=== PATIENT | male | born 2000 | race Caucasian/White ===

== ENCOUNTER → 2020-09-11 11:12 | Outpatient (BNVA) | payer OTHER, SELFPAY | PROVIDERS: PCP Internal Medicine; Visit Provider Surgery | DX: E66.01 Morbid (severe) obesity due to excess calories (principal); Z68.41 Body mass index [BMI] 40.0-44.9, adult | CPT/HCPCS: 99212 ==

== ENCOUNTER → 2020-10-20 08:18 | Outpatient (BNVA) | payer OTHER, SELFPAY | PROVIDERS: Visit Provider Physician Assistant | DX: Z76.89 Persons encountering health services in other specified circumstances (principal) ==

== ENCOUNTER → 2020-11-20 08:27 | Outpatient (BNVA) | payer OTHER, SELFPAY | PROVIDERS: Visit Provider Surgery | DX: E66.01 Morbid (severe) obesity due to excess calories (principal); Z68.41 Body mass index [BMI] 40.0-44.9, adult | CPT/HCPCS: 99212 ==

== ENCOUNTER 2020-12-05 13:13 | Outpatient (REF) | payer OTHER, SELFPAY ==
[2020-12-05 15:37] LABS: Vitamin D 25-OH Total 12.8 ng/mL (>30)
[2020-12-09 22:03] LABS: Vitamin A 33 mcg/dL (38-98)
== END 2020-12-05 13:14 | disposition home or self-care (01) ==
LOC: HO.LAB 13:13
PROVIDERS: Visit Provider Surgery
DX: E66.01 Morbid (severe) obesity due to excess calories (principal); Z68.41 Body mass index [BMI] 40.0-44.9, adult; E50.9 Vitamin A deficiency, unspecified; E55.9 Vitamin D deficiency, unspecified
CPT/HCPCS: 36415; 82306; 84590; 99212

== ENCOUNTER → 2020-12-22 13:58 | Outpatient (BNVA) | payer OTHER, SELFPAY | PROVIDERS: Visit Provider Physician Assistant | DX: E66.9 Obesity, unspecified (principal); Z68.38 Body mass index [BMI] 38.0-38.9, adult | CPT/HCPCS: 99212 ==

== ENCOUNTER → 2020-12-25 13:21 | Outpatient (REF) | payer OTHER, SELFPAY ==
--- NOTE | 2020-12-25 13:29 | ECG_ITS ---
Test Reason : SOB Blood Pressure : / mmHG Vent. Rate : 068 BPM Atrial Rate : 068 BPM P-R Int : 122 ms QRS Dur : 110 ms QT Int : 384 ms P-R-T Axes : 050 052 007 degrees QTc Int : 408 ms Normal sinus rhythm Normal ECG When compared with ECG of 02-JUN-2020 10:43, No significant change was found Referred By: Abena Fields Electronically Signed By:Flody Thompson
== END ==
LOC: HO.CARD 13:21
PROVIDERS: Visit Provider Surgery
DX: R06.02 Shortness of breath (principal)
CPT/HCPCS: 93005

== ENCOUNTER 2020-12-27 06:00 | Inpatient (IN) | payer OTHER, SELFPAY ==
[2020-12-22 09:19] VITALS: BMI 38.8
[2020-12-22 10:59] VITALS: BMI 38.8
[2020-12-22 16:52] LABS: Glucose Urine UA NEG (NEG); Leukocyte Esterase Urine NEG (NEG); Nitrite Urine NEG (NEG); PH 5.5 (5.0-8.0); Specific Gravity - Urine >= 1.030 (1.005-1.025); Urine Blood NEG (NEG); Urine Ketones NEG (NEG); Urine Protein NEG (NEG-TRACE)
[2020-12-22 16:54] LABS: Appearance Urine CLEAR; Color Urine YELLOW
[2020-12-22 17:24] LABS: MANUAL DIFF FLAG NO
[2020-12-22 17:30] LABS: Basophils Percent Auto 0.7 % (0-2); Eosinophils Absolute Auto 0.2 X10*3/uL (0.0-0.4); Eosinophils Percent Auto 2.6 % (0-4); Hematocrit 46.5 % (42-52); Hemoglobin 15.4 g/dl (14.0-18.0); Imm Gran Abs Auto 0.01 X10*3/uL (0.00-0.03); Imm Gran Pct Auto 0.2 % (0.0-0.4); Lymphocytes Absolute Auto 2.2 X10*3/uL (1.2-4.9); Lymphocytes Percent Auto 36.8 % (20-40); Mean Corpuscular HGB Conc 33.1 g/dl (31.0-36.0); Mean Corpuscular Hemoglobin 28.7 pg (27.0-33.0); Mean Corpuscular Volume 86.6 fL (80-98); Mean Platelet Volume 11.1 fL (9.4-12.4); Monocytes Absolute Auto 0.5 X10*3/uL (0.1-1.2); Monocytes Percent Auto 8.7 % (2-11); Neutrophils Absolute Auto 3.1 X10*3/uL (2.0-8.3); Platelet Count 290 X10*3/uL (160-400); Red Blood Count 5.37 X10*6/uL (4.60-5.80); Red Cell Distribution Width 13.5 % (11.0-16.0); White Blood Count 6.1 X10*3/uL (4.8-10.8)
[2020-12-22 17:38] LABS: INTERNATIONAL NORM RATIO 1.1 (0.9-1.1); Prothrombin Time 12.7 SEC (10.8-13.0)
[2020-12-22 17:40] LABS: Partial Thromboplastin Time 36.8 SEC (24.1-38.0)
[2020-12-22 19:32] LABS: Albumin Level 4.7 g/dL (3.5-5.0); Anion Gap 12 (12-20); Blood Urea Nitrogen 12 mg/dL (9-16); Calcium 9.3 mg/dL (8.4-10.2); Carbon Dioxide 28 mmol/L (22-29); Chloride 108 mmol/L (96-108); Creatinine Clr Calc Pharmacy 163.7; Estimated Glomerular Filt Rate > 60; Glucose Random 75 mg/dL (60-115); Potassium 4.4 mmol/L (3.3-5.1); Sodium 144 mmol/L (135-145)
[2020-12-22 19:54] LABS: Vitamin D 25-OH Total 10.7 ng/mL (>30)
--- NOTE | 2020-12-26 10:45 | P.CONAN_ITS ---
Documented by User: Roslyn Holland 12/26/20 10:46 HPI - Anesthesia Eval Consult details Narrative: 20yo M for Gastrectomy Sleeve PMFSH Active Problems Active Problems: All Active Problems (Updated 12/22/20 @ 16:13 by Yanely Nicole) Obesity (Acute) Shortness of breath (Acute) Preoperative examination (Acute) Body mass index (BMI) of 40.0 to 44.9 in adult (Acute) BMI 38.0-38.9,adult (Acute) Morbid (severe) obesity due to excess calories (Acute) Vitamin D deficiency (Acute) Vitamin A deficiency (Acute) Morbid obesity with BMI of 40.0-44.9, adult (Acute) Past Medical History Medical History Anxiety Depression Morbid obesity with BMI of 40.0-44.9, adult PTSD (post-traumatic stress disorder) Family History Family History Father No problems noted. Mother Fibromyalgia PTSD (post-traumatic stress disorder) Hypoglycemia Depression Brother No problems noted. Brother No problems noted. Sister No problems noted. Sister No problems noted. Surgical History Surgical History S/P routine circumcision Social History Social History Are you a primary skin care consultant to a significant other at home: No Do you presently have visiting nurse or other home services: No Alcohol intake: never Smoking Status: Never smoker Use of substances other than those prescribed or required for medical reasons: No Have you been hit, kicked, punched, or otherwise hurt by someone within the past year? If so, by whom?: No Advance Directives: No Advance Directives Information Provided: No Recently lost weight without trying: No Meds Allergies Allergy/AdvReac Type Severity Reaction Status Date / Time No Known Allergies Allergy Verified 12/22/20 16:11 Exam Exam Date and Time: December 26, 2020 1045 Height,Weight and Vital Signs: Height 5 ft 9 in Weight 119.295 kg Pertinent Lab Results Pertinent Lab Results: Laboratory Tests 12/22/20 12/22/20 12/22/20 16:35 16:35 16:35 WBC 6.1 RBC 5.37 Hgb 15.4 Hct 46.5 MCV 86.6 MCH 28.7 MCHC 33.1 RDW 13.5 Plt Count 290 MPV 11.1 Immature Gran % (Auto) 0.2 Neut % (Auto) 51.0 Lymph % (Auto) 36.8 [place] % (Auto) 8.7 Eos % (Auto) 2.6 Baso % (Auto) 0.7 Lymph # (Auto) 2.2 [place] # (Auto) 0.5 Eos # (Auto) 0.2 Baso # (Auto) 0.0 Abs Immat Gran (auto) 0.01 Absolute Neuts (auto) 3.1 Absolute Nucleated RBC 0.000 Nucleated RBC % (auto) 0.0 PT 12.7 INR 1.1 APTT 36.8 Sodium 144 Potassium 4.4 Chloride 108 Carbon Dioxide 28 Anion Gap 12 BUN 12 Creatinine 0.91 Estim Creat Clear Calc 163.7 Estimated GFR > 60 Random Glucose 75 Calcium 9.3 Albumin 4.7 25-OH Vitamin D Total 10.7 Urine Color Urine Appearance Urine pH Ur Specific [place] Urine Protein Urine Glucose (UA) Urine Ketones Urine Blood Urine Nitrite Ur Leukocyte Esterase Blood Type Antibody Screen 12/22/20 12/22/20 16:35 Unknown WBC RBC Hgb Hct MCV MCH MCHC RDW Plt Count MPV Immature Gran % (Auto) Neut % (Auto) Lymph % (Auto) [place] % (Auto) Eos % (Auto) Baso % (Auto) Lymph # (Auto) [place] # (Auto) Eos # (Auto) Baso # (Auto) Abs Immat Gran (auto) Absolute Neuts (auto) Absolute Nucleated RBC Nucleated RBC % (auto) PT INR APTT Sodium Potassium Chloride Carbon Dioxide Anion Gap BUN Creatinine Estim Creat Clear Calc Estimated GFR Random Glucose Calcium Albumin 25-OH Vitamin D Total Urine Color YELLOW Urine Appearance CLEAR Urine pH 5.5 Ur Specific [place] >= 1.030 H Urine Protein NEG Urine Glucose (UA) NEG Urine Ketones NEG Urine Blood NEG Urine Nitrite NEG Ur Leukocyte Esterase NEG Blood Type A Positive Antibody Screen NEGATIVE Narrative Narrative: EKG 12/25/20 Normal sinus rhythm Normal ECG When compared with ECG of 02-JUN-2020 10:43, No significant change was found Assessment and Plan Assessment Anesthesia Assessment: Chart Reviewed Documented by User: Jagdish Guerra 12/27/20 10:54 PMFSH Past Medical History Medical History Anxiety Depression Morbid obesity with BMI of 40.0-44.9, adult PTSD (post-traumatic stress disorder) Family History Family History Father No problems noted. Mother Fibromyalgia PTSD (post-traumatic stress disorder) Hypoglycemia Depression Brother No problems noted. Brother No problems noted. Sister No problems noted. Sister No problems noted. Family history of problems with anesthesia: No Surgical History Surgical History S/P routine circumcision History of Problems with Anesthesia: No Social History Social History Are you a primary skin care consultant to a significant other at home: No Do you presently have visiting nurse or other home services: No Alcohol intake: never Smoking Status: Never smoker Use of substances other than those prescribed or required for medical reasons: No Have you been hit, kicked, punched, or otherwise hurt by someone within the past year? If so, by whom?: No Advance Directives: No Advance Directives Information Provided: No Recently lost weight without trying: No Meds Allergies Allergy/AdvReac Type Severity Reaction Status Date / Time No Known Allergies Allergy Verified 12/22/20 16:11 Exam Airway Mallampati Class: I TM Dist: >3cm Neck ROM: Full Heart: ok Lungs: ok
--- NOTE | 2020-12-26 14:41 | MHC.SHP ---
Pre-Procedural Eval Section B Chief Complaint: severe obesity Allergies: Allergies Allergy/AdvReac Type Severity Reaction Status Date / Time No Known Allergies Allergy Verified 12/22/20 16:11 Plan I have reviewed the history and physical and performed a pertinent physical examination on my patient. No changes have occurred unless specified.
[2020-12-27] VITALS (12 sets, daily range): BP systolic 134–158; BP diastolic 71–85; PULSE 78–97; RESP 16–20; TEMP 36.6–36.8; O2SAT 94–99
--- NOTE | ~2020-12-27 | XR_ITS ---
EXAMINATION: XR CHEST CLINICAL INFORMATION: Shortness of breath. COMPARISON: None TECHNIQUE: 2 views of the chest were obtained. FINDINGS: No significant abnormality is noted involving the heart, lungs, mediastinum, bony thorax or soft tissues. XR/XR chest 2V IMPRESSION: Unremarkable examination.
[2020-12-27 09:34] LABS: COVID-19 Test Negative (Negative); IDNOW Serial# 9DD0AD1C
--- NOTE | 2020-12-27 12:31 | P.BOP_ITS ---
Brief Operative Note Date of Service: 12/27/20 Pre-op diagnosis: Obesity, BMI 38.8 Post-op diagnosis: same Procedure: Laparoscopic sleeve gastrectomy, Mary Alice block, and intraoperative endoscopy Implants: covidien deon Surgeon: Abena Fields MD Anesthesia: GETA Road Roller Operator: Janice Daniels Estimated blood loss (mL): 10 Pathology: other (Partial gastrectomy) Condition: stable Disposition: PACU
--- NOTE | 2020-12-27 12:32 | P.OP_ITS ---
Operative Note Operative Note Date of Service: 12/27/20 Narrative: Patient was brought into the operating room and placed on the operating room table in the supine position. General anesthesia was induced. Normal DVT prophylaxis was instituted and the patient received 2 grams of cefotetan preoperatively. The abdomen was then prepped and draped in the normal sterile fashion. A safety time-out was performed. A mixture of 1% lidocaine with epinephrine and ??% Marcaine plain was used to a nesthetize the planned incision site in the left upper quadrant. A #11 scalpel was used to make a 5 mm left upper quadrant transverse incision through which a veress needle was placed. Three pops were heard going through the fascia. A saline drop test was used to confirm that the veress needle was intraabdominal. An optiview technique was then used to place a 5mm port in the left upper quadrant. A 5 mm 30 degree laproscope was then placed through this port and the abdominal cavity was surveyed and was normal. The patient was placed in reverse Trendelenburg positioning. A marva liver retractor was then placed in the subxyphoid position and it was used to hold up the left lobe of the liver to the abdominal wall. This was secured to the bed using the liver retractor decker. A [place] block was then performed for pain control on the right side of the abdomen. A 5 mm port was placed in the right upper quadrant near the falciform ligament. A 12 mm port was then placed in the mid epigastrium. One additional 5 mm port was placed in the left upper quadrant just to the left of the placement of the first port. I then performed a [place] block on the left side of the abdomen. I then removed the epigastric fat pad; there was no evidence of hiatal hernia. I then opened up the angle of His. We then gained entry into the lesser sac about 4-5 cm from the pylorus. I had anesthesia place a 34 Ukrainian orogastric tube into the distal antrum to use as a sizing tool for gastric pouch size. I divided the short gastric vessels up to the angle of His. We then started the creation of the gastric pouch by firing a 60 mm purple load endostapler up the stomach about 4-5 cm from the pylorus. We completed the creation of the gastric pouch using a total of 4 firings of a 60 mm purple load stapler. We had anesthesia remove the orogastric tube, then we clamped across the distal antrum using a fired 60 mm endostapler. We flattened the patient and then instilled normal saline surrounding the newly created staple line. I then performed an on-table endoscopy. I passed the gastroscopy into the posterior oropharynx and down the esophagus evaluating the esophageal mucosa which was normal. There was no evidence of hiatal hernia. I passed the gastroscope into the gastric pouch and insufflated the gastric pouch. There was healthy pink mucosa and no evidence of active bleeding. There was no evidence of leak on laparoscopy. I desufflated the gastric pouch and removed the endoscope. I removed the endostapler from the abdomen and suctioned the fluid from the left upper quadrant. I then removed the partial gastrectomy specimen through the epigastric 12 mm port site. I reapproximated the 12 mm port using a 0 maxon suture with a laparoscopic suture passer. I instilled local anesthetic into the fascial closure site and tied the suture down at a pressure of 8-10 mm of Hg. There was no residual fascial defect. We removed the liver retractor and the left upper quadrant 5 mm ports under direct visualization. There was no evidence of any active bleeding. I desufflated the abdomen through the last remaining port and removed the laparoscope an d 5 mm port. We reapproximated all incisions with a 4-0 monocryl subcuticular stitch. We cleaned and dried the abdominal skin and applied dermabond skin glue. All count were correct at the end of the case. The patient was awake and in stable condition prior to extubation and transfer to the recovery room.
--- NOTE | 2020-12-27 12:43 | PM.PNGS ---
Subjective Subjective Date of Service: 12/28/20 <Janice Daniels PA-C - Last Filed: 12/28/20 08:33> 12/28/20 <Abena Fields MD - Last Filed: 12/28/20 09:28> Interval history: POD #1: Patient is doing well. Has been ambulating, using the incentive spirometer, and tolerating po liquids. No nausea or abdominal pain. Has some mild incisional pain. <Janice Daniels PA-C - Last Filed: 12/28/20 08:33> Pod #1 s/p lap sleeve gastrectomy. Doing well. Tolerating stage 3 diet, ambulating in hallway. Pain well controlled. Denies nausea or vomiting. Vitals and labs reviewed and are within limit for post op day 1. On exam, patient is well appearing, abdomen is soft, nd, mild appropriate incisional tenderness. Incisions c/d/I with dermabond in place. Plan: d/c home today. Follow up with me in 2 weeks. <Abena Fields MD - Last Filed: 12/28/20 09:28> Physical Exam Vital Signs: Vital Signs: Body Mass Index 38.8 <Janice Daniels PA-C - Last Filed: 12/28/20 08:33> Const: General: cooperative, comfortable, no acute distress, alert and awake <Janice Daniels PA-C - Last Filed: 12/28/20 08:33> Nutritional Appearance: obese <Janice Daniels PA-C - Last Filed: 12/28/20 08:33> GI: Inspection: Yes normal to inspection, Yes incision (normal, slight erythema at site of surgical glue, no tenderness/warmth/drai) and Yes obesity <Janice Daniels PA-C - Last Filed: 12/28/20 08:33> Extrem: Right lower extremity: lower leg Details: no tenderness; no edema <SARAH Spear Last Filed: 12/28/20 08:33> Left lower extremity: lower leg Details: no tenderness; no edema <Janice Daniels PA-C - Last Filed: 12/28/20 08:33> Progress Note: A&P Assessment and plan (1) Obesity: Status: Acute <Janice Daniels PA-C - Last Filed: 12/28/20 08:33> (2) S/P laparoscopic sleeve gastrectomy: Status: Acute <Janice Daniels PA-C - Last Filed: 12/28/20 08:33> (3) Intestinal malabsorption following gastrectomy: Status: Acute <Janice Daniels PA-C - Last Filed: 12/28/20 08:33> Assessment and Plan: POD #1: 1 day s/p LSG. Patient doing well and will be discharged home today. All instructions given in writing. Follow up as scheduled in 2 weeks. <Janice Daniels PA-C - Last Filed: 12/28/20 08:33> Fall Risk Details Current Medications: Current Medications Generic Name Dose Route Start Last Admin Trade Name Freq PRN Reason Stop Dose Admin Fentanyl 50 mcg 12/27/20 11:23 Fentanyl Citrate/Pf 100 Mcg/2 Ml Vial IVPUSH Q5M PRN Pain, Severe (Pain Scale 7-10) Hydromorphone HCl 0.5 mg 12/27/20 11:23 Hydromorphone Hcl 0.5 Mg/0.5 Ml Syringe IVPUSH Q5M PRN Pain, Severe (Pain Scale 7-10) Lactated Ringer's 1,000 mls @ 100 mls/hr 12/27/20 08:45 Lr IVCONT .Q10H LUIS A Ketorolac Tromethamine 15 mg 12/27/20 11:23 Ketorolac Tromethamine 15 Mg/Ml Vial IVPUSH ONCE PRN Pain, Moderate (Pain Scale 4-6 Ondansetron HCl 4 mg 12/27/20 11:23 Ondansetron Hcl 4 Mg/2 Ml Vial IVPUSH ONCE PRN Nausea and Vomiting <Janice Daniels PA-C - Last Filed: 12/28/20 08:33> Time Spent With Patient Time: Total time spent is greater than 50% in coordination of care (as documented) at patient's floor/unit and/or counseling patient: <Janice Daniels PA-C - Last Filed: 12/28/20 08:33> Time with patient: less than 15 minutes <Abena Fields MD - Last Filed: 12/28/20 09:28>
--- NOTE | 2020-12-27 12:45 | P.DS_ITS ---
DS: Providers Provider Date of Service: 01/04/21 Date of admission: 12/27/20 06:00 Primary care physician: None Physician DS: Diagnosis Discharge Diagnosis (1) Obesity: Status: Acute (2) S/P laparoscopic sleeve gastrectomy: Status: Acute (3) Intestinal malabsorption following gastrectomy: Status: Acute DS: Medications Discharge Medications Home Medications: Previous Rx's Medication Instructions Recorded cholecalciferol (vitamin D3) 1,250 1,250 mcg PO QWEEK #4 cap 12/06/20 mcg (50,000 unit) capsule vitamin A palmitate 10,000 unit 20,000 unit PO DAILY 30 Days #60 12/11/20 tablet tab acetaminophen 500 mg tablet 1,000 mg PO Q6H PRN #30 tab 12/22/20 docusate sodium 100 mg capsule 100 mg PO BID #30 cap 12/22/20 famotidine 20 mg tablet 20 mg PO DAILY #30 tab 12/22/20 ondansetron HCl 4 mg tablet 4 mg PO Q6H PRN #30 tab 12/22/20 simethicone 80 mg chewable tablet 80 mg PO TID-QID PRN #30 tab 12/22/20 DS: Summary Time Spent with Patient Time attestation: Total time spent providing and/or coordinating discharge servi goldie: Discharge coordination time: Greater than 30 minutes Physical Exam Vital Signs: Vital Signs: Body Mass Index 38.8 DS: Data Data Completed and Pending Pending studies at discharge: Pending at discharge 12/27/20 12:04 Surgical [PTH] Routine Labs on day of discharge: Laboratory Results - last 24 hr 12/27/20 09:00 COVID-19 ([facility]ARD) Negative COVID-19 Clin Com See Note Discharge Plan Discharge Patient Disposition: Home, Self-Care Referrals: Physician,None [Primary Care Provider] - Discharge Medications: Continued acetaminophen [Tylenol Extra Strength] 500 mg tablet 1,000 mg PO Q6H PRN (Reason: pain) Qty: 30 RF: 1 famotidine [Pepcid AC] 20 mg tablet 20 mg PO DAILY Qty: 30 RF: 1 simethicone [Gas Relief (simethicone)] 80 mg tablet,chewable 80 mg PO TID-QID PRN (Reason: abdominal distention) Qty: 30 RF: 1 ondansetron HCl [Zofran] 4 mg tablet 4 mg PO Q6H PRN (Reason: nausea and vomiting) Qty: 30 RF: 1 docusate sodium [Colace] 100 mg capsule 100 mg PO BID Qty: 30 RF: 1 Discontinued cholecalciferol (vitamin D3) 1,250 mcg (50,000 unit) capsule 1,250 mcg PO QWEEK Qty: 4 RF: 2 vitamin A palmitate 10,000 unit tablet 20,000 unit PO DAILY 30 Days Qty: 60 RF: 0 Discharge Orders: Discharge Order (Routine); Ordered 12/28/20 Ordered By: Abena Fields Diet: other Activity on Discharge: No heavy lifting Stand Alone Forms: Patient Portal Discharge page Activity Restrictions/Additional Instructions: Discharge Instructions 1. Please call your doctor or come back to the emergency room should any new symptoms arise. 2. You will receive a courtesy call from [facility] 24-48 hours after discharge. 3. Activity: abstain from alcohol, practice limited stair climbing, no bending, no driving, no exercise, no illicit substances, no lifting, no sex, no tub bath, no work. 4. Diet: continue stage 3 protein shakes until your [address] Fields. 5. Dressing Change/Wound Care: Your incision is covered by surgical glue. If the area is tender, you may apply an ice pack for short intervals (no more than 20 minutes on, followed by at least 20 minutes off). Do not apply heat. Do not use creams, lotions, or topical antibiotics unless instructed to do so by your surgeon. These can cause infection or allergic reaction. 6. Call your doctor if: - Your temperature exceeds 101.5 F - You experience excessive pain or swelling - You have an unexpected reaction to medication - You have excessive bleeding - You experience continued vomiting/nausea - Your incision begins to separate - Your incision shows signs of infection such as increased redness, swelling, excessive pain, heat, or drainage (light blood or clear fluid is normal) 7. General instructions: - No lifting greater than 5 lbs for the next 4 weeks. - No driving within 24 hours of taking narcotic pain medications. - If you do not move your bowels in the next 2 days, please take milk of m agnesia over the counter. Please follow the post op diet and do not advance your diet until you are seen in the office in about 2 weeks. - Please walk around your home every hour or two to prevent blood clots from forming in your legs. You do not need to wake from sleeping to walk. - Please sleep in a bed or couch to prevent kinking at the hips and knees. - Please take your incentive spirometer (your lung tag machine operator) home with you and use it for the next few days to prevent pneumonias. - You may shower, no hot tubs, baths or swimming pools. - Please call the office with any questions or concerns such as increasing abdominal pain, fever, chills, shortness of breath, chest pain, leg pain or swelling, or redness or drainage from your incisions. - Please stay on stage 3 diet which includes sugar free clear liquids such as ice pops and jello and broth and crystal light. Avoid all carbonation. Please drink 3 protein shakes with at least 25-30 grams of protein daily or 3 of the Celebrate 4:1 shakes which can be purchased in our office. The Celebrate shakes have all of the bariatric vitamins you need if you consume these shakes. If you are drinking other protein shakes, you will need to purchase the Celebrate multivitamins and calcium that we provide in the office (they will provide all the vitamins you need). Please make sure you are consuming at least 40-60 ounces of water in addition to your 3 protein shakes daily. 8. Do not hesitate to contact the office with any questions at . Discharge Summary Date of Service: 12/27/20 Admitting Diagnosis: obesity Discharge Diagnosis: same Procedure Performed: LSG, cecy block, intra-operative endoscopy Discharge Medications: 1. Simethicone 80mg tablet chewable (Si tablet every 6 hours orally for 7 days, #28, 1 RF) q4h prn gas 2. Acetaminophen 500 mg tablet (Si tablets as needed every 6 hours orally for 30 days, #240, 0 RF) 3. Ondansetron 4 mg tablet disintegrating (Si tablet every 6 hours orally for 7 days, #28, 1 RF) 4. Colace 100 mg capsule (Si capsule twice a day for 30 days, #60, 2 RF) 5. Pepcid 20 mg chewable tablet (Si tablet twice a day for 30 days, #60, 3 RF) Discharge Instructions: The patient should continue on the stage III bariatric diet, which includes 3 protein shakes of at least 20-30g of protein on a daily basis. The patient was encouraged to avoid drinking liquids with her protein shakes. They should wait 30-45 minutes in between her meals and drinking water. She should drink at least 40-60 ounces of water on a daily basis. They should ambulate while at home to avoid any blood clots in her lower extremities. They should call with any questions or concerns such as increase in abdominal pain, persistent nausea, vomiting, redness and drainage from her incisions, fever, chills, shortness of breast, or chest pain beyond what is normal for her. The patient should avoid all heavy lifting greater than 5 pounds for the next 4 weeks. The patient is already scheduled to follow up with me in 2 weeks time, but should call the office with any questions prior to that follow up appointment. The patient should not advance their diet until they are seen in the office for the 2 week appointment. Hospital Course: The patient was admitted after undergoing LSG. They were started on stage II (1 oz of fluid every 15 minutes) on POD #0. The next morning they were evaluated and started on stage III diet (protein shakes). All labs were within normal limits. On post-operative day #1 she was feeling better, nausea and epigastric pain improved and they were tolerating stage III bariatric diet well. The patient was discharged home. Discharge Disposition: Home. Visit Report Forms: Patient Portal Discharge page Care Plan Goals: weight loss Health Concerns: obesity Plan of Treatment: LSG Discharge Date/Time: 12/28/20 09:57
[2020-12-27] MEDS: HYDROmorphone HCl 0.5 MG/0.5 ML SYRINGE IVPUSH ×2 (13:01→13:50)
[2020-12-27 13:11] LABS: Vitamin A 35 mcg/dL (38-98)
[2020-12-27] MEDS: Famotidine/PF 20 MG/2 ML VIAL IVPUSH ×2 (15:01→20:47)
[2020-12-27] MEDS: Lactated Ringers 1,000 ML 125 ML IVCONT ×2 (15:05→23:01)
[2020-12-27] MEDS: ondansetron HCL 4 MG/2 ML VIAL IVPUSH (20:48)
[2020-12-27] MEDS: cefoTEtan disodium 2 GM in 0.9 % Sodium Chloride 50 ML IV (23:00)
[2020-12-28 03:31] VITALS: BP 137/78; PULSE 84; RESP 18; TEMP 37.2; O2SAT 98
[2020-12-28 04:42] LABS: MANUAL DIFF FLAG NO
[2020-12-28 04:45] LABS: Basophils Percent Auto 0.2 % (0-2); Hematocrit 41.4 % (42-52); Hemoglobin 13.9 g/dl (14.0-18.0); Imm Gran Abs Auto 0.02 X10*3/uL (0.00-0.03); Imm Gran Pct Auto 0.2 % (0.0-0.4); Lymphocytes Absolute Auto 1.7 X10*3/uL (1.2-4.9); Lymphocytes Percent Auto 14.3 % (20-40); Mean Corpuscular HGB Conc 33.6 g/dl (31.0-36.0); Mean Corpuscular Hemoglobin 28.8 pg (27.0-33.0); Mean Corpuscular Volume 85.9 fL (80-98); Mean Platelet Volume 10.5 fL (9.4-12.4); Monocytes Absolute Auto 0.7 X10*3/uL (0.1-1.2); Monocytes Percent Auto 6.4 % (2-11); Neutrophils Absolute Auto 9.1 X10*3/uL (2.0-8.3); Neutrophils Percent Auto 78.9 % (45-73); Platelet Count 250 X10*3/uL (160-400); Red Blood Count 4.82 X10*6/uL (4.60-5.80); Red Cell Distribution Width 13.2 % (11.0-16.0); White Blood Count 11.5 X10*3/uL (4.8-10.8)
[2020-12-28 05:05] LABS: Anion Gap 14 (12-20); Blood Urea Nitrogen 7 mg/dL (9-16); Calcium 8.8 mg/dL (8.4-10.2); Carbon Dioxide 25 mmol/L (22-29); Chloride 105 mmol/L (96-108); Creatinine Clr Calc Pharmacy 161.9; Estimated Glomerular Filt Rate > 60; Glucose Random 79 mg/dL (60-115); Potassium 4.3 mmol/L (3.3-5.1); Sodium 140 mmol/L (135-145)
[2020-12-28] MEDS: ondansetron HCL 4 MG/2 ML VIAL IVPUSH (05:16)
[2020-12-28] MEDS: Lactated Ringers 1,000 ML 125 ML IVCONT (06:36)
[2020-12-28 07:59] VITALS: BP 137/82; PULSE 88; RESP 18; TEMP 36.7; O2SAT 96
[2020-12-28] MEDS: Simethicone 80 MG TAB.CHEW PO (08:56)
[2020-12-28] MEDS: Famotidine/PF 20 MG/2 ML VIAL IVPUSH (08:56)
--- NOTE | 2020-12-28 10:50 | HO.POSTANES ---
Post Anesthesia Evaluation Post Anesthesia Evaluation Vital Signs: Vital Signs Temp Pulse Resp BP Pulse Ox 12/28/20 07:59 98.1 F 88 18 137/82 96 12/28/20 03:31 98.9 F 84 18 137/78 98 12/27/20 23:52 98.3 F 78 18 158/80 H 99 Anesthesia: General Endotracheal-GETA Mental Status: Awake Pain Control: Satisfactory Nausea/Vomiting: None (Resolved) Hydration: Adequate Anesthesia-Related Issues: No Anes. Related Issues
== END 2020-12-28 09:57 | disposition home or self-care (01) | DRG 403 ==
LOC: HO.SSSA 13:16 → HO.S3 13:36
PROVIDERS: Physician Assistant; Admitting Provider Surgery; Visit Provider Surgery
PROC: 0DB64Z3 Excision of Stomach, Percutaneous Endoscopic Approach, Vertical (ICD-10-PCS; CPT 43845; principal; 2020-12-27 09:50)
DX: E66.01 Morbid (severe) obesity due to excess calories (principal); G89.18 Other acute postprocedural pain; Z20.822 Contact with and (suspected) exposure to COVID-19; Z68.38 Body mass index [BMI] 38.0-38.9, adult; Z79.899 Other long term (current) drug therapy
CPT/HCPCS: 36415; 71046; 80048; 81003; 82040; 82306; 84590; 85025; 85610; 85730; 86850; 86900; 86901; 87635; 88307; 88342; 99024; C1776; J0131; J1100; J1170; J2250; J2405; J3010

== ENCOUNTER → 2021-01-12 13:39 | Outpatient (BNVA) | payer OTHER, SELFPAY | PROVIDERS: Visit Provider Surgery | DX: E66.9 Obesity, unspecified (principal); Z68.34 Body mass index [BMI] 34.0-34.9, adult | CPT/HCPCS: 99212 ==

== ENCOUNTER → 2021-02-27 15:22 | Outpatient (BNVA) | payer OTHER, SELFPAY | PROVIDERS: Visit Provider Physician Assistant | DX: E66.9 Obesity, unspecified (principal); K91.2 Postsurgical malabsorption, not elsewhere classified; Z90.3 Acquired absence of stomach [part of]; Z68.31 Body mass index [BMI] 31.0-31.9, adult; Z98.84 Bariatric surgery status | CPT/HCPCS: 99212 ==

== ENCOUNTER → 2021-05-04 08:13 | Outpatient (BNVA) | payer OTHER, SELFPAY | PROVIDERS: Visit Provider Physician Assistant ==

== ENCOUNTER 2021-10-17 12:42 | Outpatient (REF) | payer OTHER, SELFPAY ==
[2021-10-17 14:34] LABS: Iron 160 mcg/dL (45-160); Percent Iron Saturation 44 % (15-50); Total Iron Binding Capacity 367 mcg/dL (228-428); Unsaturated Iron Binding 207 ug/dL
[2021-10-17 14:54] LABS: Ferritin 161 ng/mL (20-250); Vitamin D 25-OH Total 21.1 ng/mL (>30)
[2021-10-17 15:14] LABS: Folate > 20.0 ng/mL (> or = 4.0); Vitamin B12 219 pg/mL (200-900)
[2021-10-22 06:21] LABS: Vitamin B1 21 nmol/L (8-30)
[2021-10-22 15:47] LABS: Zinc 77 mcg/dL (60-130)
[2021-10-23 15:17] LABS: Vitamin A 43 mcg/dL (38-98)
== END 2021-10-17 12:43 | disposition home or self-care (01) ==
LOC: HO.LAB 12:42
PROVIDERS: Visit Provider Physician Assistant Surgical
DX: E66.3 Overweight (principal); K91.2 Postsurgical malabsorption, not elsewhere classified; Z71.3 Dietary counseling and surveillance; Z90.3 Acquired absence of stomach [part of]; Z98.84 Bariatric surgery status
CPT/HCPCS: 36415; 82306; 82607; 82728; 82746; 83540; 84425; 84590; 84630; 99212

== ENCOUNTER 2021-10-17 13:43 | Emergency (ER) | payer OTHER, SELFPAY ==
[2021-10-17 14:14] VITALS: BP 100/60; PULSE 65; RESP 18; TEMP 36.9; O2SAT 98; BMI 25.4
--- NOTE | 2021-10-17 14:18 | ECG_ITS ---
Test Reason : SYNCOPY Blood Pressure : / mmHG Vent. Rate : 062 BPM Atrial Rate : 062 BPM P-R Int : 130 ms QRS Dur : 104 ms QT Int : 376 ms P-R-T Axes : 049 058 032 degrees QTc Int : 381 ms Normal sinus rhythm Normal ECG When compared with ECG of 25-DEC-2020 13:31, No significant change was found Referred By: Lindy Estrada Electronically Signed By:Floyd Thompson
--- NOTE | 2021-10-17 14:21 | ED_ITS ---
HPI - Syncope General Chief Complaint: Syncope Stated Complaint: Outpatient response Time Seen by Provider: 10/17/21 13:50 Source: patient Mode of arrival: ambulatory History of Present Illness HPI narrative: 21-year-old male with a past medical history of anxiety, depression, PTSD, morbid obesity s/p laparoscopic gastric sleeve, presenting to the ED from outpatient lab s/p syncopal episode while having labs drawn. Was having routine blood work taking in for bariatric surgery follow-up. Reports fall labs are being drawn fell increased anxiety and then syncopized with 1-2 seconds of LOC, denies falling to the ground or head trauma, was sitting during incident. Reports symptomatic improvement at present. Denies headache/CP/SOB prior to incident or now. Denies nausea, vomiting abdominal pain, numbness/tingling, cough, recent illness, incontinence, tongue biting MD complaint: loss of consciousness and felt faint Related Data Home Medications Medication Instructions Recorded Confirmed multivitamin 1 tab PO DAILY 10/17/21 10/17/21 Previous Rx's Medication Instructions Recorded cholecalciferol (vitamin D3) 125 125 mcg PO DAILY #30 cap 10/17/21 mcg (5,000 unit) capsule Allergies Allergy/AdvReac Type Severity Reaction Status Date / Time No Known Allergies Allergy Verified 10/17/21 12:54 Review of Systems Review of Systems: Constitutional:No Fever, No Chills, No Fatigue, No Malaise ENT/Mouth: No Ear Pain, No Nasal Congestion, No sore throat Eyes: No Eye Pain, No Swelling, No Redness, No Discharge, No Vision Changes Cardiovascular: No Chest Pain, No SOB, No Edema, No Palpitations Respiratory: No Cough, No Dyspnea Gastrointestinal: No Nausea, No Vomiting, No Diarrhea, No Constipation, No Abdominal pain Genitourinary: No Dysuria, No Urinary Frequency, No Hematuria, No Urinary Incontinence Musculoskeletal: No joint pain, No Myalgias, No Joint Swelling Skin: No Skin Lesions, No rash Neuro: No Weakness, No Numbness, No Paresthesias, + Loss of Consciousness, No Dizziness, No Headache Yes all other systems are reviewed and are negative Neurologic: Denies Abnormal speech present [facility] Past Medical History Attestation statement: The following information was validated with the patient. Medical History Anxiety BMI 31.0-31.9,adult BMI 38.0-38.9,adult Body mass index (BMI) of 40.0 to 44.9 in adult Depression Intestinal malabsorption following gastrectomy Morbid (severe) obesity due to excess calories Morbid obesity with BMI of 40.0-44.9, adult Preoperative examination PTSD (post-traumatic stress disorder) Shortness of breath Vitamin A deficiency Vitamin D deficiency Surgical History S/P laparoscopic sleeve gastrectomy S/P routine circumcision Family History Family History Father No problems noted. Mother Fibromyalgia PTSD (post-traumatic stress disorder) Hypoglycemia Depression Brother No problems noted. Brother No problems noted. Sister No problems noted. Sister No problems noted. Social History Social History Are you a primary healthcare receptionist to a significant other at home: No Do you presently have visiting nurse or other home services: No Alcohol intake: never Advance Directives: No Advance Directives Information Provided: No Physical Exam Vital Signs: Vital Signs: Last Vital Signs Temp 98.4 F 10/17/21 14:14 Pulse 93 10/17/21 17:31 Resp 18 10/17/21 14:14 BP 115/56 L 10/17/21 17:31 Pulse Ox 98 10/17/21 14:14 BMI result Body Mass Index 25.4 Const: General: cooperative, healthy appearing, no acute distress, alert and awake Orientation/consciousness: patient oriented x3 Limitations: no limitations HENMT: Head: Yes normal to inspection and Yes atraumatic Ears: hearing grossly normal bilaterally General nose exam: Normal external nose present Face and sinus: Yes normal facial exam Eyes: General: appearance normal, both eyes and all related structures EOM: EOMs intact bilaterally Neck: Neck: Yes normal visual inspection and Yes no meningeal signs Resp: Effort & Inspection: normal respiratory effort Auscultation: clear to auscultation bilaterally, no rales, no rhonchi and no wheezes Cardio: Rate: regular rate Heart sounds: S1 normal heart sound present and S2 normal heart sound present GI: Inspection: Yes normal to inspection Palpation (GI): Soft to palpation, nontender, no guarding and not rigid Skin: Rashes: no rashes Wounds: no wounds Neuro: General: patient oriented x3, tone normal, moves all extremities, no meningeal signs, no focal motor deficits and CN's II-XI intact bilaterally Cranial nerves: Yes CN's II-XII intact bilaterally Cognition (Neuro): normal cognition Speech: No Abnormal speech present Motor exam (neuro): 5/5 motor strength present throughout, Pronator motor function not present and no tremor noted Coordination: [id number] test normal Romberg Test: Negative Extrem: General: Yes normal to inspection and Yes no pedal edema Course Course Course Narrative: -1523--orthostatic vital signs negative, however blood pressure dropped to 93/53 and patient could not complete task secondary to feeling dizzy -no leukocytosis. Labs otherwise unremarkable, troponin negative -1830--on re-evaluation patient reports symptomatic improvement. Repeat orthostatic vital signs negative after 2 L IVF. Plan is for discharge home to have patient follow-up with PCP MDM - Syncope MDM Narrative Medical decision making narrative: 21-year-old male with a past medical history of anxiety, depression, PTSD, morbid obesity s/p laparoscopic gastric sleeve, presenting to the ED from outpatient lab s/p syncopal episode while having labs drawn. On exam vital signs stable, NAD, nontoxic appearing, no focal neuro deficits, lungs CTA, abdomen soft/nontender. Likely vasovagal syncope episode. Rule out metabolic abnormalities. Low concern for ACS/PE or infectious etiology Plan: EKG, labs, orthostatics Medical Records Attestation: I reviewed the patient's medical records. Lab Data Attestation: I reviewed the patient's lab results. Result diagrams: 10/17/21 15:28 10/17/21 16:06 Labs: Lab Results 10/17/21 10/17/21 10/17/21 Range/Units 15:28 15:28 16:06 WBC 7.3 (4.8-10.8) X10*3/uL RBC 4.94 (4.60-5.80) X10*6/uL Hgb 15.0 (14.0-18.0) g/dl Hct 44.1 (42.0-52.0) % MCV 89.3 (80.0-98.0) fL MCH 30.4 (27.0-33.0) pg MCHC 34.0 (31.0-36.0) g/dl RDW 12.8 (11.0-16.0) % Plt Count 232 (160-400) X10*3/uL MPV 10.8 (9.4-12.4) fL Immature Gran % (Auto) 0.1 (0.0-0.4) % Neut % (Auto) 67.0 (45-73) % Lymph % (Auto) 24.5 (20-40) % [place] % (Auto) 5.8 (2-11) % Eos % (Auto) 1.9 (0-4) % Baso % (Auto) 0.7 (0-2) % Lymph # (Auto) 1.8 (1.2-4.9) X10*3/uL [place] # (Auto) 0.4 (0.1-1.2) X10*3/uL Eos # (Auto) 0.1 (0.0-0.4) X10*3/uL Baso # (Auto) 0.1 (0.0-0.2) X10*3/uL Abs Immat Gran (auto) 0.01 (0.00-0.03) X10*3/uL Absolute Neuts (auto) 4.9 (2.0-8.3) x10*3/uL Absolute Nucleated RBC 0.000 (0.0-0.012) X10*3/uL Nucleated RBC % (auto) 0.0 (0.0-0.2) /100WBC Sodium 144 (135-145) mmol/L Potassium 3.9 (3.3-5.1) mmol/L Chloride 111 H (96-108) mmol/L Carbon Dioxide 28 (22-29) mmol/L Anion Gap 9 L (12-20) BUN 11 (9-16) mg/dL Creatinine 0.80 (0.5-1.4) mg/dL Estim Creat Clear Calc 144.8 Estimated GFR > 60 Random Glucose 116 H D (60-115) mg/dL Calcium 9.2 (8.4-10.2) mg/dL Magnesium 2.0 (1.6-2.6) mg/dL Total Bilirubin 1.1 H (0.0-1.0) mg/dL Direct Bilirubin 0.4 (0.0-0.5) mg/dL AST 17 (5-37) U/L ALT 20 (0-40) U/L Alkaline Phosphatase 57 (39-117) U/L Troponin I High Sens < 3.5 (<3.5-35.0) ng/L Total Protein 6.4 L (6.5-8.0) g/dL Albumin 4.1 (3.5-5.0) g/dL Discharge Plan Discharge Clinical Impression: Syncope, vasovagal Patient Disposition: Home, Self-Care Instructions: Syncope (ED) Additional Instructions: Your blood work is reassuring today in the emergency department Please continue to/fluids at Please follow-up with her primary care doctor If symptoms persist or worsen, become lightheaded or dizzy again, you pass out again please return to the ED Prescriptions: No Action cholecalciferol (vitamin D3) 125 mcg (5,000 unit) capsule 125 mcg PO DAILY Qty: 30 RF: 3 multivitamin Tablet 1 tab PO DAILY RF: 0 Referrals: Physician,Unknown J [Primary Care Provider] - 2 days
[2021-10-17 15:08] VITALS: BP 93/53; BP 95/59; PULSE 62; PULSE 73
[2021-10-17] MEDS: 0.9 % Sodium Chloride 1,000 ML 999 ML IVCONT ×2 (15:39→16:57)
[2021-10-17 15:47] LABS: MANUAL DIFF FLAG NO
[2021-10-17 15:49] LABS: Basophils Absolute Auto 0.1 X10*3/uL (0.0-0.2); Basophils Percent Auto 0.7 % (0-2); Eosinophils Absolute Auto 0.1 X10*3/uL (0.0-0.4); Eosinophils Percent Auto 1.9 % (0-4); Hematocrit 44.1 % (42.0-52.0); Imm Gran Abs Auto 0.01 X10*3/uL (0.00-0.03); Imm Gran Pct Auto 0.1 % (0.0-0.4); Lymphocytes Absolute Auto 1.8 X10*3/uL (1.2-4.9); Lymphocytes Percent Auto 24.5 % (20-40); Mean Corpuscular Hemoglobin 30.4 pg (27.0-33.0); Mean Corpuscular Volume 89.3 fL (80.0-98.0); Mean Platelet Volume 10.8 fL (9.4-12.4); Monocytes Absolute Auto 0.4 X10*3/uL (0.1-1.2); Monocytes Percent Auto 5.8 % (2-11); Neutrophils Absolute Auto 4.9 x10*3/uL (2.0-8.3); Platelet Count 232 X10*3/uL (160-400); Red Blood Count 4.94 X10*6/uL (4.60-5.80); Red Cell Distribution Width 12.8 % (11.0-16.0); White Blood Count 7.3 X10*3/uL (4.8-10.8)
[2021-10-17 16:08] LABS: Troponin-I High Sensitivity < 3.5 ng/L (<3.5-35.0)
[2021-10-17 16:42] LABS: Alanine Aminotransferase 20 U/L (0-40); Albumin Level 4.1 g/dL (3.5-5.0); Alkaline Phosphatase 57 U/L (39-117); Anion Gap 9 (12-20); Aspartate Amino Transferase 17 U/L (5-37); Bilirubin Direct 0.4 mg/dL (0.0-0.5); Bilirubin Total 1.1 mg/dL (0.0-1.0); Blood Urea Nitrogen 11 mg/dL (9-16); Calcium 9.2 mg/dL (8.4-10.2); Carbon Dioxide 28 mmol/L (22-29); Chloride 111 mmol/L (96-108); Creatinine Clr Calc Pharmacy 144.8; Estimated Glomerular Filt Rate > 60; Glucose Random 116 mg/dL (60-115); Potassium 3.9 mmol/L (3.3-5.1); Sodium 144 mmol/L (135-145); Total Protein 6.4 g/dL (6.5-8.0)
[2021-10-17 17:29] VITALS: BP 103/63; BP 109/58; PULSE 80; PULSE 95
[2021-10-17 17:31] VITALS: BP 115/56; PULSE 93
== END 2021-10-17 18:54 | disposition home or self-care (01) ==
PROVIDERS: Physician Assistant; Emergency Provider Emergency Medicine
DX: R55 Syncope and collapse (principal); Z98.84 Bariatric surgery status
CPT/HCPCS: 36415; 80048; 80076; 83735; 84484; 85025; 93005; 96360; 99284

== ENCOUNTER → 2021-11-21 08:09 | Outpatient (BNVA) | payer OTHER, SELFPAY | PROVIDERS: Visit Provider Dietitian, Registered | DX: E66.9 Obesity, unspecified (principal); Z68.25 Body mass index [BMI] 25.0-25.9, adult | CPT/HCPCS: 97803 ==

== ENCOUNTER → 2021-12-26 12:26 | Outpatient (BNVA) | payer OTHER, SELFPAY | PROVIDERS: Visit Provider Physician Assistant Surgical | DX: E66.3 Overweight (principal); Z68.26 Body mass index [BMI] 26.0-26.9, adult; Z98.84 Bariatric surgery status | CPT/HCPCS: 99212 ==

== ENCOUNTER → 2022-01-03 08:23 | Outpatient (BNVA) | payer OTHER, SELFPAY | PROVIDERS: Visit Provider Dietitian, Registered | DX: E66.3 Overweight (principal); Z98.84 Bariatric surgery status ==